=== PATIENT | male | born 1945 | race Caucasian/White ===

== ENCOUNTER 2017-03-09 12:06 | Inpatient (IN) | payer OTHER, MEDICARE ==
--- NOTE | 2017-03-09 13:24 | ER Document Report ---
ED General - General Chief Complaint: Palpitations Stated Complaint: RAPID HEART RATE Time Seen by Provider: 03/09/17 13:21 Notes: 71-year-old male sent here from the [facility] clinic for high heart rate. The patient states that he feels fine. He denies any lightheadedness chest pain shortness of breath palpitations chest discomfort. He states that he went to the clinic to follow-up on an MRI that was performed for his chronic bilateral arm numbness and back pain that has been ongoing for the past 1 year. He denies any prior history of elevated heart rate. He does not know what his usual heart rate at baseline. He has not had any changes in medications recently. TRAVEL OUTSIDE OF THE [place] IN LAST 30 DAYS: No - Related Data Allergies/Adverse Reactions: No Known Allergies Allergy (Verified 03/09/17 12:07) Home Medications: Current Home Medications Temazepam [Restoril] 30 mg PO QHS 03/09/17 [History] Past Medical History - Social History Smoking Status: Smoker,Current Status Unk Family History: Reviewed & Not Pertinent Review of Systems - Review of Systems Notes: See history of present illness for pertinent positive review of systems; otherwise all review of systems have been reviewed and are negative Physical Exam - Vital signs Vitals: Temp Pulse Resp BP Pulse Ox 98.1 F 152 H 18 133/99 H 96 03/09/17 12:18 03/09/17 12:18 03/09/17 12:18 03/09/17 12:18 03/09/17 12:18 - Notes Notes: PHYSICAL EXAMINATION: GENERAL: Well-appearing and in no acute distress. HEAD: Atraumatic, normocephalic. EYES: Pupils equal round and reactive to light, extraocular movements intact, sclera anicteric, conjunctiva are normal. ENT: nares patent, oropharynx clear without exudates. Moist mucous membranes. NECK: Normal range of motion, supple without lymphadenopathy LUNGS: CTAB and equal. No wheezes rales or rhonchi. HEART: Tachycardic rate and regular rhythm without murmurs ABDOMEN: Soft, no tenderness. No guarding, no rebound EXTREMITIES: Normal range of motion, no pitting edema. No cyanosis. NEUROLOGICAL: Cranial nerves grossly intact. Normal sensory/motor exams. PSYCH: Normal mood, normal affect. SKIN: Warm, Dry, normal turgor, no rashes or lesions noted Course - Re-evaluation Re-evalutation: 03/09/17 13:23 MEDICAL DECISION MAKING: Concern for SVT versus atrial fibrillation with rapid ventricular response versus electrolyte imbalance Will obtain workup including chest x-ray I have spoken to the patient regarding benefits/risks of pharmacological/ electrical cardioversion At this time, he is unsure and not consenting to the procedure I will check back with him shortly to see if he has come up with a decision Patient understands and agrees to the plan of care EKG my interpretation rate tachycardic rhythm reg No appreciable ST elevation or depression Normal TX QRS QT Appears to be SVT 03/09/17 13:40 03/09/17 14:55 Patient consents to pharmacological cardioversion Adenosine ordered and awaiting pharmacy approval 03/09/17 17:00 Results reviewed there is minimal leukocytosis hemoglobin normal troponin negative electrolytes essentially unremarkable chest x-ray no acute findings; the adenosine has been nontherapeutic so he is currently on a diltiazem drip with minimal improvement 03/09/17 17:36 Heart rate has not improved with diltiazem drip at 10 so I spoke to Dr. Pringle of Cardiology He recommends that we give 150 mg amiodarone bolus then start him on amiodarone drip He will consult on the patient Spoke to Dr Dotson who advises they will not be able to get to the patient before 7PM I asked him to pass this patient onto the night attending and he advises he will do so - Vital Signs Vital signs: Temp Pulse Resp BP Pulse Ox 97.8 F 152 H 18 131/98 H 95 03/09/17 22:30 03/09/17 12:18 03/09/17 23:01 03/09/17 23:15 03/09/17 23:15 - Laboratory Result Diagrams: 03/09/17 13:02 03/09/17 13:02 Laboratory results interpreted by me: 03/09/17 03/09/17 13:02 13:02 WBC 11.5 H Absolute Neutrophils 8.4 H Chloride 109 H Calcium 11.1 H Procedures - Additional Procedures Cardioversion/Defib Time performed: 15:35 - adenosine 12 mg x2 Additional Procedures: Cardioversion/defib - pharmacological w adenosine Notes: 03/09/17 15:45 Patient did not convert Discharge - Discharge Clinical Impression: Tachycardia Condition: Fair Disposition: ADMITTED INPATIENT Admitting Provider: Hospitalist Unit Admitted: ICU - Spoke to Renaldo Dotson who will pass onto Higu[facility]
[2017-03-09 13:33] LABS: ABSOLUTE BASOPHILS # (AUTO) 0.1 10^3/uL (0.0-0.2); ABSOLUTE EOSINOPHILS # (AUTO) 0.4 10^3/uL (0.0-0.6); ABSOLUTE LYMPHOCYTES (AUTO) 1.8 10^3/uL (0.5-4.7); ABSOLUTE MONOCYTES (AUTO) 0.9 10^3/uL (0.1-1.4); ABSOLUTE NEUT (AUTO) 8.4 10^3/uL (1.7-8.2); BASOPHILS % (AUTO) 0.6 % (0-2); EOSINOPHILS % (AUTO) 3.7 % (0-6); HEMATOCRIT 46.5 % (37.9-51.0); LYMPHOCYTES % (AUTO) 15.4 % (13-45); MEAN CORPUSCULAR HEMOGLOBIN 30.3 pg (27.0-33.4); MEAN CORPUSCULAR HGB CONC 34.4 g/dL (32.0-36.0); MEAN CORPUSCULAR VOLUME 88 fl (80-97); MONOCYTES % (AUTO) 7.5 % (3-13); PLATELET COUNT 244 10^3/uL (150-450); RED BLOOD COUNT 5.29 10^6/uL (4.35-5.55); SEGMENTED NEUTROPHILS % (AUTO) 72.8 % (42-78); TOTAL CELLS COUNTED % (AUTO) 100 %; WHITE BLOOD COUNT 11.5 10^3/uL (4.0-10.5)
[2017-03-09 13:42] LABS: ANION GAP 12 (5-19); BLOOD UREA NITROGEN 11 mg/dL (7-20); CALCIUM 11.1 mg/dL (8.4-10.2); CARBON DIOXIDE 22 mmol/L (22-30); CHLORIDE 109 mmol/L (98-107); GLUCOSE 80 mg/dL (75-110); SODIUM 142.5 mmol/L (137-145)
--- NOTE | 2017-03-09 14:04 | RADIOLOGY REPORT (SQ) ---
EXAM DESCRIPTION: CHEST PA/LAT COMPLETED DATE/TIME: 03/09/2017 1:56 pm REASON FOR STUDY: palpitation COMPARISON: None. EXAM PARAMETERS: NUMBER OF VIEWS: two views TECHNIQUE: Digital Frontal and Lateral radiographic views of the chest acquired. RADIATION DOSE: NA LIMITATIONS: none FINDINGS: LUNGS AND PLEURA: No opacities, masses or pneumothorax. No pleural effusion. MEDIASTINUM AND HILAR STRUCTURES: No masses or contour abnormalities. HEART AND VASCULAR STRUCTURES: Heart normal size. No evidence for failure. BONES: Bony structures are somewhat osteopenic with a slightly exaggerated thoracic kyphosis and dege nerative changes in the thoracic spine HARDWARE: None in the chest. OTHER: No other significant finding. IMPRESSION: NO SIGNIFICANT RADIOGRAPHIC FINDING IN THE CHEST. TECHNICAL DOCUMENTATION: JOB ID: [id number] [employer]- All Rights Reserved
[2017-03-09] MEDS ORDERED: ADENOSINE INJ/PF 6 MG/2 ML SDV IV ONE ×2 (14:55→15:43)
[2017-03-09] MEDS ORDERED: DILTIAZEM HCL INJ 25 MG/5 ML VIAL IV ONE (15:43)
[2017-03-09] MEDS: DILTIAZEM HCL/D5W 125 MG/125 ML RTUINJ IV PRN (16:26)
[2017-03-09] MEDS ORDERED: AMIODARONE HCL 150 MG in DEXTROSE 5%-WATER 100 ML IV ONE (17:31)
[2017-03-09] MEDS ORDERED: AMIODARONE HCL INJ 150 MG/3 ML VIAL IV ONE (18:44)
--- NOTE | 2017-03-09 19:05 | EKG REPORT ---
SEVERITY:- ABNORMAL ECG - SUPRAVENTRICULAR TACHYCARDIA SUSPECT ATRIAL FLUTTER 2:1 AVB VENTRICULAR PREMATURE COMPLEX BORDERLINE LEFT AXIS DEVIATION MINIMAL ST DEPRESSION : Confirmed by: Roscoe Phillips MD 09-Mar-2017 19:04:49
[2017-03-09] MEDS ORDERED: NORMAL SALINE 1000 ML 1,000 ML IV PRN (19:36)
[2017-03-09] MEDS ORDERED: ACETAMINOPHEN 325 MG TABLET PO PRN (19:36)
[2017-03-09] MEDS ORDERED: DEXTROSE 5%-WATER 500 ML with AMIODARONE HCL 900 MG IV PRN ×2 (19:40)
[2017-03-09] MEDS ORDERED: ENOXAPARIN SODIUM INJ 100 MG/1 ML DISP.SYRIN SUBCUT SCH (19:45)
[2017-03-09 19:51] LABS: INTERNATIONAL RATION (INR) 0.94; PROTHROMBIN TIME 13.2 SEC (11.4-15.4)
[2017-03-09 19:52] LABS: PARTIAL THROMBOPLASTIN TIME 33.5 SEC (23.5-35.8)
--- NOTE | 2017-03-09 20:35 | PDOC CONSULTATION ---
Consultation Consult Date: 03/09/17 Attending physician:: AMAN GRAVES Consult reason:: Atrial fibrillation flutter with rapid ventricular response. History of Present Illness Admission Date/PCP: 03/09/17 18:14 JOHN MICHAELS Patient complains of: Rapid heart beat History of Present Illness: RAMOS MANZANO is a 71 year old male with past medical history of arthritis, basilar skull fracture secondary to trauma, arthritis who presents to the emergency department at the behest of his neurologist for rapid heartbeat. Patient was found to initially be in SVT and was given adenosine and then found to be in a flutter. Patient subsequently received several boluses of diltiazem and was started initially on a diltiazem drip which did not control his atrial fibrillation/flutter. Patient denied throughout the course of this any chest pain or shortness of breath. He denied any dyspnea on exertion. Cardiology was consulted and they did recommend amiodarone. Patient was initially started on amiodarone and referred to the hospitalist service for admission. Medications: Patient reports that he takes Restoril 30 mg p.o. nightly and occasionally tramadol for his pain. Above history was reviewed and confirmed. The history was supplemented as well. Patient does use marijuana. 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 Patient denied any prior history of atrial flutter , fibrillation, coronary artery disease, CHF or angina. Past Medical History Cardiac Medical History: Reports: None Pulmonary Medical History: Reports: None EENT Medical History: Reports: None Neurological Medical History: Reports: None Endocrine Medical History: Reports: None Renal/ Medical History: Reports: None Malignancy Medical History: Reports: None GI Medical History: Reports: None Musculoskeltal Medical History: Reports: Arthritis Skin Medical History: Reports: None Psychiatric Medical History: Reports: Substance Abuse Traumatic Medical History: Reports: None Hematology: Reports: None Infectious Medical History: Reports: None Past Surgical History Past Surgical History: Reports: Orthopedic Surgery - bilateral legs Social History Information Source: Patient Smoking Status: Never Smoker Hx Recreational Drug Use: Yes Drugs: Marijuana - Advance Directive Resuscitation Status: Full Code Surrogate healthcare decision maker:: Patient spouse is the surrogate decision-maker Family History Family History: Hypertension Parental Family History Reviewed: Yes Children Family History Reviewed: Yes Sibling(s) Family History Reviewed.: Yes Medication/Allergy Home Medications: Temazepam [Restoril] 30 mg PO QHS 03/09/17 Apixaban [Eliquis 5 mg Tablet] 5 mg PO BID 30 Days #60 tablet 03/10/17 Diltiazem HCl [Cardizem Cd 120 mg Capsule] 120 mg PO Q12 30 Days #60 cap.sr.24h 03/10/17 Dronedarone Hydrochloride [Multaq 400 Mg Tablet] 400 mg PO BID #60 tablet Tramadol HCl [Ultram 50 mg Tablet] 50 mg PO Q6HP PRN tablet 03/10/17 Allergies/Adverse Reactions: No Known Allergies Allergy (Verified 03/09/17 12:07) Review of Systems Review of Systems: Please see history of present illness and past medical history as wall. Constitutional: No fever or chills reported. Head : No recent chronic headaches, recent head injury. Eyes: No recent eye pain, diplopia, redness, discharge, acute visual changes. Ears: No recent chronic ear pain, acute hearing loss, ear discharge. Oral cavity: No recent ulcerations, bleeding, oral cavity discomfort. Neck: No recent acute neck pain reported. Hematologic: No recent easy bruising or bleeding or hematologic malignancy reported. Lymphatic: No recent lymphatic malignancy, chronic lymphadenopathy reported yet Cardiovascular system review: See history of present illness. Respiratory system review: No recent chronic cough, hemoptysis, blood clots in the lungs reported. Mild Shortness of breath on exertion Gastrointestinal system review: Negative for any recent acute or chronic abdominal pain, hematemesis, melena, recent change in bowel habits. Genitourinary system review: No recent acute or chronic hematuria, flank pain, UTI etc. reported. Skin system review: Negative for any recent abnormal bruising, no rash, no pruritus reported. Neurologic: No prior history of strokes, mini strokes, seizure disorder. Psychologic: No history of major psychosis or major depression reported. Musculoskeletal: Minor aches and pains reported. No acute joint swelling reported. Endocrine: No recent polyuria, polydipsia, recent heat or cold intolerance. Physical Exam Vital Signs: Temp Pulse Resp BP Pulse Ox 98.1 F 152 H 22 H 102/66 95 03/09/17 12:18 03/09/17 12:18 03/09/17 20:02 03/09/17 20:02 03/09/17 20:02 Exam: GENERAL: well-nourished and in no acute distress. Alert and oriented x3 HEAD: Atraumatic, normocephalic. EYES: Pupils equal round and reactive to light, extraocular movements intact, sclera anicteric, conjunctiva are normal. ENT: TMs normal, nares patent, oropharynx clear without exudates. Moist mucous membranes. No oral ulcerations or bleeding gums noted NECK: supple without lymphadenopathy. Trachea is central. No cervical or axillary lymphadenopathy noted. Carotids are 2+, JVD WNL LUNGS: Respiration seems nonlabored, no significant accessory muscle action noted. Breath sounds clear to auscultation bilaterally and equal noted. No wheezes rales or rhonchi noted. No significant dullness noted on percussion. CHEST: Palpation of the chest wall shows no significant chest wall tenderness. Pectus excavatum abnormality noted of the sternum.. 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 ABDOMEN: Soft, no significant tenderness appreciated, normoactive bowel sounds. No guarding, no rebound. No rigidity noted . No masses appreciated. EXTREMITIES: Pedal pulses are 1-2+, no calf tenderness noted. No clubbing or cyanosis. Negative pedal edema noted NEUROLOGICAL: Focused neurological exam showed no significant neurologic deficit. Normal speech, no focal weakness appreciated. PSYCH: Normal mood, normal affect. Judgment and insight within normal limits. SKIN: No significant ecchymosis, rash, ulcerations or signs of pruritus noted. MUSCULOSKELETAL EXAM: No significant joint swelling noted. Results EKG Comments: Atrial flutter/PAT with 2-1 conduction noted. Minor nonspecific T-wave changes noted. Impressions: Chest X-Ray 03/09/17 13:22 IMPRESSION: NO SIGNIFICANT RADIOGRAPHIC FINDING IN THE CHEST. Assessment & Plan - Diagnosis (1) Atrial fibrillation and flutter Is this a current diagnosis for this admission?: Yes (2) Sleep disorder Is this a current diagnosis for this admission?: Yes (3) Marijuana use Is this a current diagnosis for this admission?: Yes - Notes Notes: Patient seen in the emergency room. Management plan discussed with ER physician. Patient was given 2 doses of IV Cardizem bolus. It was felt that atrial flutter fibrillation is fairly recent origin and may be started this morning. At this point have recommended chronic anticoagulation with Lovenox and Eliquis. Lovenox could be stopped after first dose of Eliquis. Have also recommended for rate control as it has been difficult to achieve, to start amiodarone bolus and drip protocol. It is likely that patient may convert to sinus rhythm. Will get an EKG and echocardiogram first thing in the morning. Discussed with patient's family member. Patient's is the surrogate decision-maker. - Time Time Spent: 30 to 50 Minutes - CODE STATUS was discussed, patient remains full code. Surrogate decision-maker unchanged. Multiple medical problems were addressed. More than 50% of the time spent coordinating care, discussing management plans with involved caregivers. Management plans discussed with involved personnels. Medical decision making was of moderate to high complexity , patient's has multiple comorbidities. Medications reviewed and adjusted accordingly: Yes
[2017-03-09] MEDS ORDERED: TRAMADOL HCL 50 MG TABLET PO PRN (20:40)
[2017-03-09] MEDS ORDERED: NORMAL SALINE 1000 ML 1,000 ML IV ONE (20:41)
[2017-03-09 21:22] LABS: APPEARANCE,URINE CLEAR; BILIRUBIN,URINE NEGATIVE (NEGATIVE); COLOR,URINE YELLOW; GLUCOSE, URINE NEGATIVE (NEGATIVE); KETONES,URINE 20 mg/dL (NEGATIVE); LEUKOCYTE ESTERASE,URINE NEGATIVE (NEGATIVE); NITRITE,URINE NEGATIVE (NEGATIVE); PROTEIN,URINE NEGATIVE (NEGATIVE); URINE SPECIFIC GRAVITY 1.018; UROBILINOGEN,URINE NEGATIVE mg/dL (<2.0)
[2017-03-09 21:34] LABS: URINE AMPHETAMINES SCREEN NEGATIVE; URINE BARBITURATES SCREEN NEGATIVE; URINE BENZODIAZEPINES SCREEN NEGATIVE; URINE COCAINE SCREEN NEGATIVE; URINE MARIJUANA (THC) SCREEN UNCONFIRMED POSITIVE; URINE METHADONE SCREEN NEGATIVE; URINE PHENCYCLIDINE SCREEN NEGATIVE
[2017-03-09 21:54] LABS: TRIGLYCERIDES 61 mg/dL (<150)
[2017-03-09] MEDS ORDERED: TEMAZEPAM 15 MG CAPSULE PO SCH (22:00)
[2017-03-09 22:06] LABS: DIRECT LDL 106 mg/dL (<100)
[2017-03-09 22:07] LABS: CREATINE KINASE MB 0.61 ng/mL (<4.55)
[2017-03-09 22:10] LABS: TROPONIN I < 0.012 ng/mL
[2017-03-10] MEDS: DILTIAZEM HCL/D5W 125 MG/125 ML RTUINJ IV PRN (00:30)
[2017-03-10 04:01] LABS: HEMATOCRIT 40.4 % (37.9-51.0); MEAN CORPUSCULAR HEMOGLOBIN 30.7 pg (27.0-33.4); MEAN CORPUSCULAR HGB CONC 34.6 g/dL (32.0-36.0); MEAN CORPUSCULAR VOLUME 89 fl (80-97); PLATELET COUNT 199 10^3/uL (150-450); RED BLOOD COUNT 4.55 10^6/uL (4.35-5.55); RED CELL DISTRIBUTION WIDTH 13.3 % (11.5-14.0); WHITE BLOOD COUNT 9.8 10^3/uL (4.0-10.5)
--- NOTE | 2017-03-10 04:11 | PDOC H&P ---
History of Present Illness Admission Date/PCP: 03/09/17 18:14 JOHN MICHAELS History of Present Illness: Patient is a 71-year-old male with past medical history of arthritis, basilar skull fracture secondary to trauma, arthritis who presents to the emergency department at the behest of his neurologist for rapid heartbeat. Patient was found to initially be in SVT and was given adenosine and then found to be in a flutter. Patient subsequently received several boluses of diltiazem and was started initially on a diltiazem drip which did not control his atrial fibrillation/flutter. Patient denied throughout the course of this any chest pain or shortness of breath. He denied any dyspnea on exertion. Cardiology was consulted and they did recommend amiodarone. Patient was initially started on amiodarone and referred to the hospitalist service for admission. Medications: Patient reports that he takes Restoril 30 mg p.o. nightly and occasionally tramadol for his pain Past Medical History Musculoskeltal Medical History: Reports: Arthritis, Other - History of basilar skull fracture Traumatic Medical History: Reports: Other - history of basilar skull fracture Past Surgical History Past Surgical History: Reports: Orthopedic Surgery - bilateral legs Social History Smoking Status: Never Smoker Frequency of Alcohol Use: Social Amount of Alcoholic Beverages Per Day: 2 beers daily, prior heavy drinker Hx Recreational Drug Use: Yes Drugs: Marijuana Hx Prescription Drug Abuse: No - Advance Directive Resuscitation Status: Full Code Surrogate healthcare decision maker:: , Grace Duran Family History Family History: Malignancy, Thyroid Disfunction Parental Family History Reviewed: Yes Children Family History Reviewed: Yes Sibling(s) Family History Reviewed.: Yes Medication/Allergy Home Medications: Temazepam [Restoril] 30 mg PO QHS 03/09/17 Allergies/Adverse Reactions: No Known Allergies Allergy (Verified 03/09/17 12:07) Review of Systems Constitutional: ABSENT: chills, fever(s), headache(s), weight gain, weight loss Eyes: ABSENT: visual disturbances Ears: ABSENT: hearing changes Cardiovascular: ABSENT: chest pain, dyspnea on exertion, edema, orthropnea, palpitations Respiratory: ABSENT: cough, hemoptysis Gastrointestinal: ABSENT: abdominal pain, constipation, diarrhea, hematemesis, hematochezia, nausea, vomiting Genitourinary: ABSENT: dysuria, hematuria Musculoskeletal: ABSENT: joint swelling Integumentary: ABSENT: rash, wounds Neurological: ABSENT: abnormal gait, abnormal speech, confusion, dizziness, focal weakness, syncope Psychiatric: ABSENT: anxiety, depression, homidical ideation, suicidal ideation Endocrine: ABSENT: cold intolerance, heat intolerance, polydipsia, polyuria Hematologic/Lymphatic: ABSENT: easy bleeding, easy bruising Physical Exam Vital Signs: Temp Pulse Resp BP Pulse Ox 98.1 F 152 H 22 H 102/66 95 03/09/17 12:18 03/09/17 12:18 03/09/17 20:02 03/09/17 20:02 03/09/17 20:02 General appearance: PRESENT: no acute distress, well-developed, well-nourished Head exam: PRESENT: atraumatic, normocephalic Eye exam: PRESENT: conjunctiva pink, EOMI, PERRLA. ABSENT: scleral icterus Ear exam: PRESENT: normal external ear exam Mouth exam: PRESENT: moist, tongue midline Neck exam: ABSENT: JVD, lymphadenopathy, thyromegaly, tracheal deviation Respiratory exam: PRESENT: clear to auscultation tyrell, unlabored, other - Pectus excavatum. ABSENT: accessory muscle use, rales, rhonchi, wheezes Cardiovascular exam: PRESENT: irregular rhythm, +S1, +S2, systolic murmur. ABSENT: diastolic murmur, rubs Pulses: PRESENT: normal dorsalis pedis pul Vascular exam: PRESENT: normal capillary refill GI/Abdominal exam: PRESENT: normal bowel sounds, soft. ABSENT: distended, firm , guarding, mass, Landa's sign, organolmegaly, rebound, rigid, tenderness Rectal exam: PRESENT: deferred Extremities exam: PRESENT: full ROM. ABSENT: calf tenderness, clubbing, pedal edema Neurological exam: PRESENT: alert, awake, oriented to person, oriented to place , oriented to time, oriented to situation, CN II-XII grossly intact. ABSENT: motor sensory deficit Psychiatric exam: PRESENT: appropriate affect, normal mood. ABSENT: homicidal ideation, suicidal ideation Skin exam: PRESENT: dry, intact, warm. ABSENT: cyanosis, rash Results Laboratory Results: 03/09/17 03/09/17 03/09/17 13:02 13:02 13:02 WBC 11.5 H Hgb 16.0 Hct 46.5 Plt Count 244 Sodium 142.5 Potassium 4.0 Chloride 109 H Carbon Dioxide 22 Anion Gap 12 BUN 11 Creatinine 0.79 Glucose 80 Calcium 11.1 H Magnesium Creatine Kinase Troponin I < 0.012 TSH U Marijuana (THC) Screen 03/09/17 03/09/17 03/09/17 13:02 20:54 21:15 WBC Hgb Hct Plt Count Sodium Potassium Chloride Carbon Dioxide Anion Gap BUN Creatinine Glucose Calcium Magnesium 2.1 Creatine Kinase Troponin I TSH 1.83 U Marijuana (THC) Screen UNCONFIRMED POSITIVE 03/09/17 03/09/17 21:15 21:15 WBC Hgb Hct Plt Count Sodium Potassium Chloride Carbon Dioxide Anion Gap BUN Creatinine Glucose Calcium Magnesium Creatine Kinase 27 L Troponin I < 0.012 TSH U Marijuana (THC) Screen Impressions: Chest X-Ray 03/09/17 13:22 IMPRESSION: NO SIGNIFICANT RADIOGRAPHIC FINDING IN THE CHEST. Assessment & Plan - Diagnosis (1) Atrial flutter Qualifiers: Atrial flutter type: unspecified Qualified Code(s): I48.92 - Unspecified atrial flutter Is this a current diagnosis for this admission?: Yes Plan: Patient currently on amiodarone drip. Discontinue Cardizem drip Place patient on Lovenox weight based Initiate patient on Eliquis if his a flutter sound to be not secondary to a valvular issue Obtain echocardiogram Appreciate cardiology input (2) Arthritis Is this a current diagnosis for this admission?: Yes Plan: Tramadol as needed pain (3) Marijuana use Is this a current diagnosis for this admission?: Yes Plan: Advised that this is not legal in this state. - Time Time Spent: 30 to 50 Minutes Medications reviewed and adjusted accordingly: Yes Anticipated discharge: Home - Inpatient Certification Based on my medical assessment, after consideration of the patient's comorbidities, presenting symptoms, or acuity I expect that the services needed warrant INPATIENT care.: Yes I certify that my determination is in accordance with my understanding of Medicare's requirements for reasonable and necessary INPATIENT services [42 CFR 412.3e].: Yes Medical Necessity: Need For Continuous Telemetry Monitoring Post Hospital Care: D/C Speech And Language Clinician Documentation
[2017-03-10 04:12] LABS: ANION GAP 8 (5-19); BLOOD UREA NITROGEN 11 mg/dL (7-20); CALCIUM 10.1 mg/dL (8.4-10.2); CARBON DIOXIDE 24 mmol/L (22-30); CHLORIDE 111 mmol/L (98-107); CHOLESTEROL 136.17 mg/dL (0-200); CREATINE KINASE 26 U/L (55-170); GLUCOSE 85 mg/dL (75-110); MAGNESIUM 1.9 mg/dL (1.6-2.3); POTASSIUM 3.6 mmol/L (3.6-5.0); TRIGLYCERIDES 120 mg/dL (<150)
[2017-03-10 04:24] LABS: CREATINE KINASE MB 0.43 ng/mL (<4.55); DIRECT LDL 85 mg/dL (<100)
[2017-03-10 04:30] LABS: TROPONIN I < 0.012 ng/mL
[2017-03-10] MEDS ORDERED: AMIODARONE HCL 200 MG TABLET PO ONE (08:51)
[2017-03-10] MEDS ORDERED: POTASSIUM CHLORIDE 20 MEQ/15 ML UDCUP PO ONE (08:56)
[2017-03-10 09:57] LABS: CREATINE KINASE MB 0.38 ng/mL (<4.55)
[2017-03-10] MEDS ORDERED: MAGNESIUM OXIDE 400 MG TABLET PO SCH (10:00)
[2017-03-10] MEDS ORDERED: APIXABAN 5 MG TABLET PO SCH (10:00)
[2017-03-10 10:03] LABS: TROPONIN I < 0.012 ng/mL
--- NOTE | 2017-03-10 11:10 | PDOC PROGRESS REPORT ---
Subjective Progress Note for:: 03/10/17 Subjective:: Patient seems to be doing better with significant improvement. Pt is denying any chest arm or neck discomfort. Patient denying any PND, orthopnea. Patient denied any sustained palpitations, dizziness, syncope, near syncope. Patient denying any fever chills. Patient denying any other significant discomfort. Patient is maintaining sinus rhythm. Patient noted to be in sinus rhythm with occasional APCs and VPCs have been converted from atrial flutter fibrillation with amiodarone bolus and drip protocol. Review of systems: Rest review of systems negative. Medications: Medications have been reviewed. Reason For Visit: A-FLUTTER Physical Exam Vital Signs: Temp Pulse Resp BP Pulse Ox 98.3 F 152 H 14 115/65 97 03/10/17 06:00 03/09/17 12:18 03/10/17 08:31 03/10/17 08:31 03/10/17 08:31 Exam: GENERAL: well-nourished and in no acute distress. Alert and oriented x3 HEAD: Atraumatic, normocephalic. EYES: Pupils equal round and reactive to light, extraocular movements intact, sclera anicteric, conjunctiva are normal. ENT: TMs normal, nares patent, oropharynx clear without exudates. Moist mucous membranes. No oral ulcerations or bleeding gums noted NECK: supple without lymphadenopathy. Trachea is central. No cervical or axillary lymphadenopathy noted. Carotids are 2+, JVD WNL LUNGS: Respiration seems nonlabored, no significant accessory muscle action noted. Breath sounds clear to auscultation bilaterally and equal noted. No wheezes rales or rhonchi noted. No significant dullness noted on percussion. CHEST: Palpation of the chest wall shows no significant chest wall tenderness. No other significant abnormalities noted. Pectus excavatum abnormalities of the chest noted. 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 ABDOMEN: Soft, no significant tenderness appreciated, normoactive bowel sounds. No guarding, no rebound. No rigidity noted . No masses appreciated. EXTREMITIES: Pedal pulses are 1-2+, no calf tenderness noted. No clubbing or cyanosis.trace to 1+ pedal edema noted NEUROLOGICAL: Focused neurological exam showed no significant neurologic deficit. Normal speech, no focal weakness appreciated. PSYCH: Normal mood, normal affect. Judgment and insight within normal limits. SKIN: No significant ecchymosis, rash, ulcerations or signs of pruritus noted. MUSCULOSKELETAL EXAM: No significant joint swelling noted. Results Laboratory Results: 03/10/17 03:32 03/10/17 03:32 03/09/17 03/09/17 03/09/17 20:54 21:15 21:15 WBC RBC Hgb Hct MCV MCH MCHC RDW Plt Count Sodium Potassium Chloride Carbon Dioxide Anion Gap BUN Creatinine Est GFR ( Amer) Est GFR (Non-Af Amer) Glucose Calcium Magnesium 2.1 Triglycerides 61 Cholesterol 168.40 LDL Cholesterol Direct 106 H VLDL Cholesterol 12.0 HDL Cholesterol 52 Urine Color YELLOW Urine Appearance CLEAR Urine pH 5.0 Ur Specific [place] 1.018 Urine Protein NEGATIVE Urine Glucose (UA) NEGATIVE Urine Ketones 20 H Urine Blood SMALL H Urine Nitrite NEGATIVE Ur Leukocyte Esterase NEGATIVE Urine WBC (Auto) 4 Urine RBC (Auto) 2 03/10/17 03/10/17 03:32 03:32 WBC 9.8 RBC 4.55 Hgb 14.0 Hct 40.4 MCV 89 MCH 30.7 MCHC 34.6 RDW 13.3 Plt Count 199 Sodium 143.0 Potassium 3.6 Chloride 111 H Carbon Dioxide 24 Anion Gap 8 BUN 11 Creatinine 0.78 Est GFR ( Amer) > 60 Est GFR (Non-Af Amer) > 60 Glucose 85 Calcium 10.1 Magnesium 1.9 Triglycerides 120 Cholesterol 136.17 LDL Cholesterol Direct 85 VLDL Cholesterol 24.0 HDL Cholesterol 41 Urine Color Urine Appearance Urine pH Ur Specific [place] Urine Protein Urine Glucose (UA) Urine Ketones Urine Blood Urine Nitrite Ur Leukocyte Esterase Urine WBC (Auto) Urine RBC (Auto) 03/09/17 03/09/17 03/09/17 21:15 21:15 21:15 Creatine Kinase 27 L CK-MB (CK-2) 0.61 Troponin I < 0.012 NT-Pro-B Natriuret Pep 1400 H 03/10/17 03/10/17 03/10/17 03:32 03:32 09:00 Creatine Kinase 26 L 24 L CK-MB (CK-2) 0.43 Troponin I < 0.012 NT-Pro-B Natriuret Pep 03/10/17 09:00 Creatine Kinase CK-MB (CK-2) 0.38 Troponin I < 0.012 NT-Pro-B Natriuret Pep EKG Comments: Shows sinus rhythm with frequent APCs Impressions: Chest X-Ray 03/09/17 13:22 IMPRESSION: NO SIGNIFICANT RADIOGRAPHIC FINDING IN THE CHEST. Assessment & Plan - Diagnosis (1) Atrial fibrillation and flutter Is this a current diagnosis for this admission?: Yes (2) Sleep disorder Is this a current diagnosis for this admission?: Yes (3) Marijuana use Is this a current diagnosis for this admission?: Yes - Notes Notes: Patient converted to sinus rhythm. Recommend multi therapy for myocyte memory raising for at least a month. Recommend Eliquis at 5 mg p.o. twice daily for at least a month. Long-term continuation of this medication would be decided at follow-up. So far patient chads score is noted to be low. Discussed that he will benefit from a stress test and a sleep study as an outpatient to evaluate risk factors for recurrent atrial fibrillation. Have also recommended event monitor as an outpatient. REC po multaq 400mg po bid with meals for 1 month. Eliquis 5 mg po qd for 1month at least. Event monitor as op. Avoid marjuana use. PSG as OP - Time Time with patient: Greater than 35 minutes - CODE STATUS was discussed, patient remains full code. Surrogate decision-maker patient's . Multiple medical problems were addressed. More than 50% of the time spent coordinating care, discussing management plans with involved caregivers. Management plans discussed with involved personnels. Medical decision making was of moderate to high complexity, patient's has multiple comorbidities. Significant time used discussing need for medications, need for additional testing and discussing discharge with hospitalist. Medications reviewed and adjusted accordingly: Yes
--- NOTE | 2017-03-10 11:54 | XCELERA REPORT ---
[address] [address] Transthoracic Echocardiogram Report Name: RAMOS MANZANO Age: 71 yrs Gender: Male : 1945 Patient Status: Inpatient Patient [address]: [address] Study Date: 03/10/2017 08:59 AM Height: 68 in Weight: 190 lb BSA: 2.0 m2 Procedure: A complete two-dimensional transthoracic echocardiogram was performed (2D, M-mode, spectral and color flow Doppler). The study was technically difficult with many images being suboptimal in quality. Reason For Study: Atrial flutter fibrillation with rapid ventricular Ordering Physician: IVELISSE SANTANA Performed By: Charissa Chapman Interpretation Summary Left ventricular systolic function is normal. Consider additional methods to assess LVEF such as MUGA scan, CTA heart, cardiac MRI, ZURDO, etc. if clinically indicated. LV diastolic function could not be adequately assessed. Not all wall segments were well visualized. There is normal left ventricular wall thickness. The left ventricle is grossly normal size. Borderline right ventricular enlargement. There is no mitral valve stenosis. There is a mild amount of mitral regurgitation There is no aortic valve stenosis No aortic regurgitation is present. There is a trace to mild amount of tricuspid regurgitation There is mild pulmonary hypertension by echo Right ventricular systolic pressure is estimated to be elevated at 30- 40mmHg. The aortic root is not well visualized. The inferior vena cava was not well visualized There is no pericardial effusion. MMode/2D Measurements & Calculations RVDd: 2.4 cm LVIDd: 4.3 cm FS: 23.2 % Ao root diam: 2.7 cm IVSd: 0.85 cm LVIDs: 3.3 cm EDV(Teich): 83.3 ml LVPWd: 0.92 cm ESV(Teich): 44.4 ml Ao root area: 5.6 cm2 EF(Teich): 46.7 % LA dimension: 4.0 cm Doppler Measurements & Calculations MV E max ruth: MV P1/2t max ruth: Ao V2 max: LV V1 max P.8 cm/sec 69.6 cm/sec 86.2 cm/sec 1.8 mmHg MV A max ruth: MV P1/2t: 83.7 msec Ao max PG: LV V1 max: 25.0 cm/sec 3.0 mmHg 67.9 cm/sec MV E/A: 2.7 MVA(P1/2t): 2.6 cm2 MV dec slope: 243.4 cm/sec2 PA V2 max: PI end-d ruth: TR max ruth: 58.7 cm/sec 89.6 cm/sec 279.6 cm/sec PA max PG: TR max P.4 mmHg 31.3 mmHg Left Ventricle The left ventricle is grossly normal size. There is normal left ventricular wall thickness. Left ventricular systolic function is normal. Consider additional methods to assess LVEF such as MUGA scan, CTA heart, cardiac MRI, ZURDO, etc. if clinically indicated. LV diastolic function could not be adequately assessed. Not all wall segments were well visualized. Right Ventricle Borderline right ventricular enlargement. There is normal right ventricular wall thickness. The right ventricular systolic function is normal. Atria The right atrium is borderline dilated. The left atrium is mildly dilated. Interarterial septum not well visualized and not well dopplered. Cannot comment on ASD/PFO presence. Mitral Valve The mitral valve is grossly normal. There is no mitral valve stenosis. There is a mild amount of mitral regurgitation. Aortic Valve The aortic valve is not well visualized secondary to technical limitations. There is no aortic valve stenosis. No aortic regurgitation is present. Tricuspid Valve The tricuspid valve is not well visualized secondary to technical limitations. There is no tricuspid stenosis. There is a trace to mild amount of tricuspid regurgitation. There is mild pulmonary hypertension by echo. Right ventricular systolic pressure is estimated to be elevated at 30-40mmHg. Great Vessels The aortic root is not well visualized. The inferior vena cava was not well visualized. Effusions There is no pericardial effusion. : IVELISSE SANTANA > Ivelisse Santana
[2017-03-10] MEDS ORDERED: DILTIAZEM HCL 120 MG CAP.SR.24H PO ONE (13:00)
[2017-03-10 14:00] VITALS: BP 156/91
--- NOTE | 2017-03-10 14:00 | PDOC DISCHARGE SUMMARY ---
General - Admit/Disc Date/PCP Admission Date/Primary Care Provider: 03/09/17 18:14 JOHN MICHAELS Discharge Date: 03/10/17 - Discharge Diagnosis (1) Atrial fibrillation and flutter Is this a current diagnosis for this admission?: Yes (2) Marijuana use Is this a current diagnosis for this admission?: Yes (3) Sleep disorder Is this a current diagnosis for this admission?: Yes - Additional Information Resuscitation Status: Full Code Discharge Diet: Cardiac Discharge Activity: Activity As Tolerated Prescriptions: Apixaban [Eliquis 5 mg Tablet] 5 mg PO BID 30 Days #60 tablet Diltiazem HCl [Cardizem Cd 120 mg Capsule] 120 mg PO Q12 30 Days #60 cap.sr.24h Dronedarone Hydrochloride [Multaq 400 Mg Tablet] 400 mg PO BID #60 tablet Home Medications: Temazepam [Restoril] 30 mg PO QHS 03/09/17 Apixaban [Eliquis 5 mg Tablet] 5 mg PO BID 30 Days #60 tablet 03/10/17 Diltiazem HCl [Cardizem Cd 120 mg Capsule] 120 mg PO Q12 30 Days #60 cap.sr.24h 03/10/17 Dronedarone Hydrochloride [Multaq 400 Mg Tablet] 400 mg PO BID #60 tablet Tramadol HCl [Ultram 50 mg Tablet] 50 mg PO Q6HP PRN tablet 03/10/17 History of Present Illness History of Present Illness: RAMOS MANZANO is a 71 year old male who is referred here by his doctor for rapid heartbeat. Patient was found to be in SVT and was given a set of adenosine 2 and then was found to be in a flutter. Patient received several boluses of diltiazem and started on a diltiazem drip which did not control his A. fib with ablation atrial flutter. Patient was started on amiodarone. Please free to H&P dictated by Dr. Higuera for complete details. Hospital Course Hospital Course: Patient presented with atrial flutter with rapid ventricular rate. Patient was given adenosine 2. Patient was given diltiazem boluses and started on diltiazem drip however heart rate was not controlled. Patient was loaded with amiodarone and started on amiodarone drip. Patient was given a therapeutic dose of Lovenox and then started on Eliquis 5 mg p.o. twice daily. Patient heart rate was much better controlled. Patient was evaluated by cardiology who recommended diltiazem 120 mg p.o. twice daily, Multivite 400 twice daily and Eliquis 5 mg take p.o. twice daily for at least one month. Cardiac echo which showed a normal systolic function unfortunately diastolic function could not be assessed there is normal left ventricular wall thickness there is borderline right ventricular enlargement there is no mitral valve stenosis there is mild amount of mitral regurgitation there is no aortic valve stenosis no aortic regurgitation is present there is a trace to mild amount of tricuspid regurgitation. Cardiology recommended patient sleep study and event monitor. Patient will need a referral from the [place] in order to follow-up with Dr. Pringle if so choose otherwise patient needs to find a skilled nursing professional at some point. Patient was asked to also refrain from smoking marijuana. Although patient potassium and magnesium was normal, patient was given replacement potassium at 3.6 and a magnesium of 1.9. Serial troponins were negative at less than 0.012. Physical Exam Vital Signs: Temp Pulse Resp BP Pulse Ox 98.3 F 152 H 14 115/65 97 03/10/17 06:00 03/09/17 12:18 03/10/17 08:31 03/10/17 08:31 03/10/17 08:31 General appearance: PRESENT: no acute distress, well-developed, well-nourished Head exam: PRESENT: atraumatic, normocephalic Eye exam: PRESENT: conjunctiva pink, EOMI, PERRLA. ABSENT: scleral icterus Ear exam: PRESENT: normal external ear exam Mouth exam: PRESENT: moist, tongue midline Neck exam: ABSENT: carotid bruit, JVD, lymphadenopathy, thyromegaly Respiratory exam: PRESENT: clear to auscultation tyrell, other - Pectus excavatum. ABSENT: rales, rhonchi, wheezes Cardiovascular exam: PRESENT: RRR. ABSENT: diastolic murmur, rubs, systolic murmur GI/Abdominal exam: PRESENT: normal bowel sounds, soft. ABSENT: distended, guarding, mass, organolmegaly, rebound, tenderness Rectal exam: PRESENT: deferred Extremities exam: PRESENT: full ROM. ABSENT: calf tenderness, clubbing, pedal edema Neurological exam: PRESENT: alert, awake, oriented to person, oriented to place , oriented to time, oriented to situation, CN II-XII grossly intact. ABSENT: motor sensory deficit Psychiatric exam: PRESENT: appropriate affect, normal mood. ABSENT: homicidal ideation, suicidal ideation Skin exam: PRESENT: dry, intact, warm. ABSENT: cyanosis, rash Results Laboratory Results: 03/10/17 03:32 03/10/17 03:32 03/09/17 03/09/17 03/09/17 20:54 21:15 21:15 WBC RBC Hgb Hct MCV MCH MCHC RDW Plt Count Sodium Potassium Chloride Carbon Dioxide Anion Gap BUN Creatinine Est GFR ( Amer) Est GFR (Non-Af Amer) Glucose Calcium Magnesium 2.1 Triglycerides 61 Cholesterol 168.40 LDL Cholesterol Direct 106 H VLDL Cholesterol 12.0 HDL Cholesterol 52 Urine Color YELLOW Urine Appearance CLEAR Urine pH 5.0 Ur Specific [place] 1.018 Urine Protein NEGATIVE Urine Glucose (UA) NEGATIVE Urine Ketones 20 H Urine Blood SMALL H Urine Nitrite NEGATIVE Ur Leukocyte Esterase NEGATIVE Urine WBC (Auto) 4 Urine RBC (Auto) 2 03/10/17 03/10/17 03:32 03:32 WBC 9.8 RBC 4.55 Hgb 14.0 Hct 40.4 MCV 89 MCH 30.7 MCHC 34.6 RDW 13.3 Plt Count 199 Sodium 143.0 Potassium 3.6 Chloride 111 H Carbon Dioxide 24 Anion Gap 8 BUN 11 Creatinine 0.78 Est GFR ( Amer) > 60 Est GFR (Non-Af Amer) > 60 Glucose 85 Calcium 10.1 Magnesium 1.9 Triglycerides 120 Cholesterol 136.17 LDL Cholesterol Direct 85 VLDL Cholesterol 24.0 HDL Cholesterol 41 Urine Color Urine Appearance Urine pH Ur Specific [place] Urine Protein Urine Glucose (UA) Urine Ketones Urine Blood Urine Nitrite Ur Leukocyte Esterase Urine WBC (Auto) Urine RBC (Auto) 03/09/17 03/09/17 03/09/17 21:15 21:15 21:15 Creatine Kinase 27 L CK-MB (CK-2) 0.61 Troponin I < 0.012 NT-Pro-B Natriuret Pep 1400 H 03/10/17 03/10/17 03/10/17 03:32 03:32 09:00 Creatine Kinase 26 L 24 L CK-MB (CK-2) 0.43 Troponin I < 0.012 NT-Pro-B Natriuret Pep 03/10/17 09:00 Creatine Kinase CK-MB (CK-2) 0.38 Troponin I < 0.012 NT-Pro-B Natriuret Pep Impressions: Chest X-Ray 03/09/17 13:22 IMPRESSION: NO SIGNIFICANT RADIOGRAPHIC FINDING IN THE CHEST. Qualifiers PATEINT BEING DISCHARGED WITH ANY OF THE FOLLOWING DIAGNOSIS?: No Plan Time Spent: Less than 30 Minutes - Patient should be referred to cardiology by [facility].
--- NOTE | 2017-03-10 14:02 | EKG REPORT ---
SEVERITY:- ABNORMAL ECG - SINUS RHYTHM, WITH PACS [id number] LAD, CONSIDER LEFT ANTERIOR FASCICULAR BLOCK BORDERLINE T ABNORMALITIES, INFERIOR LEADS BORDERLINE PROLONGED QT INTERVAL : Confirmed by: Roscoe Phillips MD 10-Mar-2017 14:02:19
[2017-03-10] MEDS ORDERED: DILTIAZEM HCL 120 MG CAP.SR.24H PO SCH (22:00)
== END 2017-03-10 14:24 | disposition home or self-care (01) | DRG 310 ==
LOC: ER 12:06 → EH 18:14
PROVIDERS: ADMIT Emergency Medicine; ATTEND Emergency Medicine
PROC: 5A2204Z Restoration of Cardiac Rhythm, Single (ICD-10-PCS; principal; 2017-03-09)
DX: I48.92 Unspecified atrial flutter (principal); I48.91 Unspecified atrial fibrillation; F12.90 Cannabis use, unspecified, uncomplicated; G47.9 Sleep disorder, unspecified; I08.1 Rheumatic disorders of both mitral and tricuspid valves; M19.90 Unspecified osteoarthritis, unspecified site; I47.1 Supraventricular tachycardia; Z79.899 Other long term (current) drug therapy; Z82.49 Family history of ischemic heart disease and other diseases of the circulatory system; Z80.9 Family history of malignant neoplasm, unspecified; Z83.49 Family history of other endocrine, nutritional and metabolic diseases
CPT/HCPCS: 36415; 71046; 80048; 80061; 80307; 81001; 82550; 82553; 83735; 83880; 84100; 84443; 84484; 85025; 85027; 85610; 85730; 93005; 93010; 93306; 96365; 96366; 96375; 99285; J0153; J0282; J1650; J3490; J7030

== ENCOUNTER 2018-11-23 09:46 | Day surgery (SDC) | payer MEDICARE, OTHER ==
[~2018-11-23 09:46] MED LIST: CEFAZOLIN SODIUM 2 GM in DEXTROSE 5%-WATER 100 ML IV PRN; FENTANYL CITRATE INJ/PF 100 MCG/2 ML AMPUL ONE; MIDAZOLAM 2 MG/2 ML INJ ONE; ONDANSETRON HCL INJ/PF 4 MG/2 ML SDV ONE; PROPOFOL INJ 200 MG/20 ML VIAL IV ONE
[2018-11-23 10:23] LABS: APPEARANCE,URINE CLEAR; BILIRUBIN,URINE NEGATIVE (NEGATIVE); COLOR,URINE YELLOW; GLUCOSE, URINE NEGATIVE (NEGATIVE); KETONES,URINE NEGATIVE (NEGATIVE); LEUKOCYTE ESTERASE,URINE NEGATIVE (NEGATIVE); NITRITE,URINE NEGATIVE (NEGATIVE); PROTEIN,URINE NEGATIVE (NEGATIVE); URINE SPECIFIC GRAVITY 1.018; UROBILINOGEN,URINE NEGATIVE mg/dL (<2.0)
[2018-11-23 10:42] LABS: HEMATOCRIT 45.8 % (37.9-51.0); HEMOGLOBIN 16.2 g/dL (13.5-17.0); MEAN CORPUSCULAR HEMOGLOBIN 31.7 pg (27.0-33.4); MEAN CORPUSCULAR HGB CONC 35.4 g/dL (32.0-36.0); MEAN CORPUSCULAR VOLUME 90 fl (80-97); PLATELET COUNT 185 10^3/uL (150-450); RED BLOOD COUNT 5.12 10^6/uL (4.35-5.55); RED CELL DISTRIBUTION WIDTH 13.8 % (11.5-14.0); WHITE BLOOD COUNT 9.9 10^3/uL (4.0-10.5)
[2018-11-23] MEDS ORDERED: LIDOCAINE 1% INJ-PF (10 MG/ML) 30 ML SDV ONE (10:44)
[2018-11-23] MEDS ORDERED: BUPIVACAINE HCL 0.5 % INJ/PF 30 ML SDV ONE (10:44)
[2018-11-23 10:49] LABS: INTERNATIONAL RATION (INR) 1.13; PROTHROMBIN TIME 14.6 SEC (11.4-15.4)
[2018-11-23 10:50] LABS: PARTIAL THROMBOPLASTIN TIME 32.2 SEC (23.5-35.8)
[2018-11-23 11:07] LABS: ANION GAP 9 (5-19); BLOOD UREA NITROGEN 14 mg/dL (7-20); CALCIUM 10.7 mg/dL (8.4-10.2); CARBON DIOXIDE 23 mmol/L (22-30); CHLORIDE 108 mmol/L (98-107); GLUCOSE 88 mg/dL (75-110); POTASSIUM 4.1 mmol/L (3.6-5.0)
[2018-11-23] MEDS ORDERED: FENTANYL CITRATE INJ/PF 100 MCG/2 ML AMPUL IV PRN ×3 (13:26)
[2018-11-23] MEDS ORDERED: ONDANSETRON HCL INJ/PF 4 MG/2 ML SDV IV PRN ×2 (13:26→13:44)
[2018-11-23] MEDS ORDERED: MEPERIDINE HCL/PF INJ 25 MG/1 ML DISP.SYRIN IV PRN (13:26)
[2018-11-23] MEDS ORDERED: PROMETHAZINE HCL INJ 25 MG/1 ML VIAL IV PRN ×2 (13:26)
[2018-11-23] MEDS ORDERED: DIPHENHYDRAMINE HCL 50 MG/ML VIAL IV PRN (13:26)
[2018-11-23] MEDS ORDERED: HYDROCODONE/ACETAMINOPHEN 5-325 MG TABLET PO PRN (13:44)
[2018-11-23 15:01] VITALS: BP 145/92
--- NOTE | 2018-11-24 09:11 | EKG REPORT ---
SEVERITY:- ABNORMAL ECG - ATRIAL FIBRILLATION, V-RATE [id number] RIGHT BUNDLE BRANCH BLOCK PROBABLE INFERIOR INFARCT, AGE INDETERMINATE : Confirmed by: Ivelisse Pringle 24-Nov-2018 09:10:01
--- NOTE | 2018-11-27 18:55 | Discharge Summary ---
Discharge Summary (SDC) - Discharge Final Diagnosis: Right carpal tunnel syndrome Date of Surgery: 11/23/18 Discharge Date: 11/23/18 Condition: Good Treatment or Instructions: Schedule Follow Up w/ Dr. Jason Joseph @ [facility] to be seen in 10-14 days or as scheduled [place]: [place]: [place]: May remove dressing on postop day #3, keep incision covered and dry. Ice and elevate May begin finger range of motion attempting to make full fist. Stool softener of choice when on pain medication. USE OF [id number] IBUPROFEN: Ibuprofen (Advil, Nuprin, Medipren, Motrin IB) is a medication for fever and pain control. In addition, it has anti- inflammatory effects which may be beneficial, especially in the treatment of injuries. It's best to take ibuprofen with food. Persons with ulcer disease or allergy to aspirin should notify their physician of this before taking ibuprofen. Ibuprofen can be given every four to six hours, for a total of four doses daily. Age Pain or fever dose Antiinflammatory dose 6-8 yr 200 mg (1 tab) 200 mg (1 tab) 9-11 yr 200 mg (1 tab) 200-400 mg (1-2 tab) 11-14 yr 200-400 mg (1-2 tab) 400 mg (2 tab) 15-adult 400 mg (2 tab) 600 mg (3 tab) ORAL NARCOTIC MEDICATION: You have been given a prescription for pain control. This medication is a narcotic. It's best taken with food, as nausea can result if taken on an empty stomach. Don't operate machinery or drive within six hours of taking this medication. Do not combine this medicine with alcohol, or with any medication which can cause sedation (such as cold tablets or sleeping pills) unless you get permission from the physician. Narcotics tend to cause constipation. If possible, drink plenty of fluids and eat a diet high in fiber and fruits. Please be aware that prescription narcotics also have the potential for abuse. People become addicted to these medications because of the general sense of wellbeing that they induce. This feeling along with a significant reduction in tension, anxiety, and aggression provides a stimulating seductive quality to these drugs. Once your pain is under control, we encourage you to discard your unused narcotics. Prescriptions: Hydrocodone/Acetaminophen [Energy 5-325 mg Tablet] 1 tab PO Q6 PRN #10 tablet PRN Reason: Referrals: [facility] [[facility] - Discharge Diet: As Tolerated Respiratory Treatments at Home: Deep Breathing/Coughing Discharge Activity: No Lifting Over 10 Pounds, No Lifting/Push/Pulling Report the Following to Your Physician Immediately: Fever over 101 Degrees, Unusual Bleeding, Redness, Swelling, Warmth, Increased Soreness
--- NOTE | 2018-11-27 18:55 | Operative Report ---
Operative Report DATE OF SURGERY: 11/23/18 PREOPERATIVE DIAGNOSIS: Right carpal tunnel syndrome POSTOPERATIVE DIAGNOSIS: Same OPERATION: Right endoscopic carpal tunnel release SURGEON: VIOLET SEGAL ANESTHESIA: LMAC COMPLICATIONS: None ESTIMATED BLOOD LOSS: Minimal PROCEDURE: Indication for above procedure: Pleasant 73-year-old male with numbness and tingling on the median nerve distribution of his right wrist. Patient electrodiagnostic testing confirming severe carpal tunnel syndrome. At that point decision was made to proceed with operative intervention. Risks and benefits were explained to the patient who verbalized understanding consented for surgical procedure. Procedure In Detail: Patient was seen and evaluated in the preoperative holding area. The right upper extremity was initialized and marked. Patient received Ancef IV for bacterial prophylaxis. Patient was taken back to the operative room where transferred operative table. Patient was then placed under MAC anesthesia. Once adequately anesthetized, a nonsterile tourniquet was placed on the upper extremity. A surgical team debriefing was performed ensuring all instrumentation was available, the surgical procedure was discussed with possible concerns reviewed. Skin was prepped with alcohol and 10cc of 1% lidocaine without epinephrine was injected locally and w/in carpal canal. The upper extremity was prepped with chlorhexidine and alcohol and draped in a sterile fashion. A timeout was done identifying correct patient, procedure and extremity everyone in attendance agree with this and verbalized no concerns.The extremity was then exsanguinated the tourniquet was inflated to 250 mmHg. A transverse skin incision was made just proximal to the wrist flexion crease ulnar to the palmaris longus. Blunt dissection was performed down to the palmaris longus tendon which was retracted radially. Deep to the palmaris longus tendon was the volar carpal ligament this was incised identifying the median nerve deep. With the use of a [place] elevator any soft tissue/synovium was freed from the undersurface of the transverse carpal ligament. The hook of hamate was identified ulnarly. The ConMed cannulas were then introduced beginning with #1 progressing to a #3 gently dilating the carpal canal. I then introduced the scope within the cannula and identified transverse carpal ligament ensuring the median nerve was not visualized within the cannula. I triangulated distally with a 25-gauge needle identifying the distal aspect of the transverse carpal ligament, to ensure protection of the superficial palmar arch. The arthroscopic knife was used to incise the transverse carpal ligament under direct visualization with the arthroscopic camera. Any excess transverse fibers that remained after the first past were carefully released with a repeat pass. The median nerve was then directly visualized radially without disruption. Once this was completed I placed the #3 dilator and assured I got complete release of the transverse carpal ligament without residual compression. The median nerve was directly visualized and free of any overlying compression. I then turned my attention to release of the volar antebrachial fascia proximally. Once again a [place] was used to open the wound and I proceeded with cannula #1 to #3. The arthroscope was introduced into the cannula and under direct visualization the volar antebrachial fascia was released. Once this was complete I copiusly irrigated the wound with normal saline. The skin incision was closed with 4-0 Monocryl subcutaneous and a running subcuticular 4-0 Monocryl. This was reinforced with Dermabond and Steri-Strips. Sterile, 4 x 4's and a Viktor bandage was placed loosely. Sponge counts, instrument counts and needle counts were correct. The was no intraoperative complications patient tolerated the procedure well and was stable to PACU.
== END 2018-11-23 15:02 | disposition home or self-care (01) ==
LOC: OROUT 09:46
PROVIDERS: ATTEND Orthopaedic Surgery
DX: G56.01 Carpal tunnel syndrome, right upper limb (principal); M79.641 Pain in right hand; I48.91 Unspecified atrial fibrillation; Z79.01 Long term (current) use of anticoagulants
CPT/HCPCS: 36415; 85027; 85610; 85730; 80048; 81001; 93005; 93010; 01810; 29848; J2250; J0690; J3010; J3490; J2405; J7060; J2704; 1810

== ENCOUNTER 2019-12-24 12:15 | Day surgery (SDC) | payer OTHER ==
--- NOTE | 2019-12-20 11:18 | RADIOLOGY REPORT (SQ) ---
EXAM DESCRIPTION: CHEST PA/LATERAL IMAGES COMPLETED DATE/TIME: 12/20/2019 11:08 am REASON FOR STUDY: PRE-OP COMPARISON: 03/09/2017 EXAM PARAMETERS: NUMBER OF VIEWS: two views TECHNIQUE: Digital Frontal and Lateral radiographic views of the chest acquired. RADIATION DOSE: NA LIMITATIONS: none FINDINGS: LUNGS AND PLEURA: No opacities, masses or pneumothorax. No pleural effusion. MEDIASTINUM AND HILAR STRUCTURES: No masses or contour abnormalities. HEART AND VASCULAR STRUCTURES: Mild cardiac enlargement. No failure. BONES: No acute findings. HARDWARE: None in the chest. OTHER: No other significant finding. IMPRESSION: Mild cardiomegaly. No failure. TECHNICAL DOCUMENTATION: JOB ID: [id number] [employer]- All Rights Reserved Reading location - IP/workstation name: [email or web address]
--- NOTE | 2019-12-20 16:12 | EKG REPORT ---
SEVERITY:- ABNORMAL ECG - ATRIAL FIBRILLATION, V-RATE [id number] MULTIFORM VENTRICULAR PREMATURE COMPLEXES RIGHT BUNDLE BRANCH BLOCK : Confirmed by: Nilo Dobson MD 20-Dec-2019 16:12:06
[~2019-12-24 12:15] MED LIST changes: +CEFAZOLIN 2 GM/D5W RTU 2 GM/50 ML RTUPB IV ONE; +CEFAZOLIN 2 GM/D5W RTU 2 GM/50 ML RTUPB IV PRN; -CEFAZOLIN SODIUM 2 GM in DEXTROSE 5%-WATER 100 ML IV PRN
[2019-12-24 13:23] LABS: INTERNATIONAL RATION (INR) 1.04; PROTHROMBIN TIME 13.8 SEC (11.4-15.4)
[2019-12-24 13:24] LABS: PARTIAL THROMBOPLASTIN TIME 34.2 SEC (23.5-35.8)
[2019-12-24] MEDS ORDERED: DILTIAZEM HCL/D5W 0 MG/0 ML RTUINJ IV ONE (13:45)
[2019-12-24] MEDS ORDERED: BUPIVACAINE HCL 0.5 % INJ/PF 30 ML SDV ONE (13:46)
[2019-12-24] MEDS ORDERED: LIDOCAINE 1% INJ-PF (10 MG/ML) 30 ML SDV ONE (13:46)
[2019-12-24] MEDS ORDERED: HYDROCODONE/ACETAMINOPHEN 5-325 MG TABLET PO PRN (14:43)
[2019-12-24] MEDS ORDERED: ONDANSETRON HCL INJ/PF 4 MG/2 ML SDV IV PRN (14:43)
[2019-12-24 16:58] VITALS: BP 156/93
--- NOTE | 2019-12-27 08:22 | Operative Report ---
Operative Report DATE OF SURGERY: 12/24/19 PREOPERATIVE DIAGNOSIS: Left carpal tunnel syndrome POSTOPERATIVE DIAGNOSIS: Same OPERATION: Endoscopic left carpal tunnel release SURGEON: VIOLET SEGAL ANESTHESIA: LMAC COMPLICATIONS: None ESTIMATED BLOOD LOSS: Minimal PROCEDURE: Indication for above procedure: 50-year-old male with numbness and tingling along the median nerve distribution. Patient had electrodiagnostic testing confirming diagnosis of carpal tunnel. Underwent right carpal tunnel release with good results at that point decision was made to proceed with left carpal tunnel release. Procedure In Detail: Patient was seen and evaluated in the preoperative holding area. The LEFT upper extremity was initialized and marked. Patient received Ancef IV for bacterial prophylaxis. Patient was taken back to the operative room where transferred operative table. Patient was then placed under MAC anesthesia. Once adequately anesthetized, a nonsterile tourniquet was placed on the upper extremity. A surgical team debriefing was performed ensuring all instrumentation was available, the surgical procedure was discussed with possible concerns reviewed. Skin was prepped with alcohol and 10cc of 1% lidocaine without epinephrine was injected locally and w/in carpal canal. The upper extremity was prepped with chlorhexidine and alcohol and draped in a sterile fashion. A timeout was done identifying correct patient, procedure and extremity everyone in attendance agree with this and verbalized no concerns.The extremity was then exsanguinated the tourniquet was inflated to 250 mmHg. A transverse skin incision was made just proximal to the wrist flexion crease ulnar to the palmaris longus. Blunt dissection was performed down to the palmaris longus tendon which was retracted radially. Deep to the palmaris longus tendon was the volar carpal ligament this was incised identifying the median nerve deep. With the use of a Oklee elevator any soft tissue/synovium was freed from the undersurface of the transverse carpal ligament. The hook of hamate was identified ulnarly. The ConMed cannulas were then introduced begi nning with #1 progressing to a #3 gently dilating the carpal canal. I then introduced the scope within the cannula and identified transverse carpal ligament ensuring the median nerve was not visualized within the cannula. I triangulated distally with a 25-gauge needle identifying the distal aspect of the transverse carpal ligament, to ensure protection of the superficial palmar arch. The arthroscopic knife was used to incise the transverse carpal ligament under direct visualization with the arthroscopic camera. Any excess transverse fibers that remained after the first past were carefully released with a repeat pass. The median nerve was then directly visualized radially without disruption. Once this was completed I placed the #3 dilator and assured I got complete release of the transverse carpal ligament without residual compression. The median nerve was directly visualized and free of any overlying compression. I then turned my attention to release of the volar antebrachial fascia proximally. Once again a [place]lee was used to open the wound and I proceeded with cannula #1 to #3. The arthroscope was introduced into the cannula and under direct visualization the volar antebrachial fascia was released. Once this was complete I copiusly irrigated the wound with normal saline. The skin incision was closed with 4-0 Monocryl subcutaneous and a running subcuticular 4-0 [place]ta cryl. This was reinforced with Dermabond and Steri-Strips. Sterile, 4 x 4's and a Viktor bandage was placed loosely. Sponge counts, instrument counts and needle counts were correct. The was no intraoperative complications patient tolerated the procedure well and was stable to PACU.
--- NOTE | 2019-12-27 08:22 | Discharge Summary ---
Discharge Summary (SDC) - Discharge Final Diagnosis: Left carpal tunnel syndrome Date of Surgery: 12/24/19 Discharge Date: 12/24/19 Condition: Good Treatment or Instructions: Schedule Follow Up w/ Dr. Jason Joseph @ [facility] Surgery to be seen in 10-14 days or as scheduled [place]: Joseph: [place]: May remove dressing on postop day #3, keep incision covered and dry. Ice and elevate May begin finger range of motion attempting to make full fist. Stool softener of choice when on pain medication. USE OF GEYM-KGT-BIYDKIA IBUPROFEN: Ibuprofen (Advil, Nuprin, Medipren, Motrin IB) is a medication for fever and pain control. In addition, it has anti- inflammatory effects which may be beneficial, especially in the treatment of injuries. It's best to take ibuprofen with food. Persons with ulcer disease or allergy to aspirin should notify their physician of this before taking ibuprofen. Ibuprofen can be given every four to six hours, for a total of four doses daily. Age Pain or fever dose Antiinflammatory dose 6-8 yr 200 mg (1 tab) 200 mg (1 tab) 9-11 yr 200 mg (1 tab) 200-400 mg (1-2 tab) 11-14 yr 200-400 mg (1-2 tab) 400 mg (2 tab) 15-adult 400 mg (2 tab) 600 mg (3 tab) ORAL NARCOTIC MEDICATION: You have been given a prescription for pain control. This medication is a narcotic. It's best taken with food, as nausea can result if taken on an empty stomach. Don't operate machinery or drive within six hours of taking this medication. Do not combine this medicine with alcohol, or with any medication which can cause sedation (such as cold tablets or sleeping pills) unless you get permission from the physician. Narcotics tend to cause constipation. If possible, drink plenty of fluids and eat a diet high in fiber and fruits. Please be aware that prescription narcotics also have the potential for abuse. People become addicted to these medications because of the general sense of wellbeing that they induce. This feeling along with a significant reduction in tension, anxiety, and aggression provides a stimulating seductive quality to these drugs. Once your pain is under control, we encourage you to discard your unused narcotics. Prescriptions: Hydrocodone/Acetaminophen [[place] 5-325 mg Tablet] 1 tab PO Q6 PRN #10 tablet PRN Reason: Referrals: GARCIA DUBOIS PA [Primary Care Provider] - Respiratory Treatments at Home: Deep Breathing/Coughing Discharge Activity: No Lifting Over 10 Pounds, No Lifting/Push/Pulling Report the Following to Your Physician Immediately: Fever over 101 Degrees, Unusual Bleeding, Redness, Swelling, Warmth, Increased Soreness
== END 2019-12-24 16:35 | disposition home or self-care (01) ==
LOC: OROUT 12:15
PROVIDERS: ATTEND Orthopaedic Surgery
DX: G56.02 Carpal tunnel syndrome, left upper limb (principal); I48.91 Unspecified atrial fibrillation; M06.9 Rheumatoid arthritis, unspecified; Z03.818 Encounter for observation for suspected exposure to other biological agents ruled out; Z79.01 Long term (current) use of anticoagulants
CPT/HCPCS: 93005; 36415; 85610; 85730; 87635; 71046; 93010; 01810; 29848; J2250; J3010; J3490; J2405; J2704; J0690; C9803; 1810